=== PATIENT | female | born 1995 | race African-American/Black ===

== ENCOUNTER 2020-07-26 14:27 | Emergency (ER) | payer OTHER ==
[~2020-07-26] VITALS: Ht 165.1 cm; Wt 63.5 kg
[2020-07-26] MEDS ORDERED: BACTRIM DS TAB1 EACH PO (16:54)
[2020-07-26] MEDS ORDERED: HYDROCODON-ACE1 EAC7 PO (16:54)
== END 2020-07-26 18:20 | disposition home or self-care (01) ==
LOC: ER 14:27
DX: L02.411 Cutaneous abscess of right axilla (principal); L73.2 Hidradenitis suppurativa; L23.9 Allergic contact dermatitis, unspecified cause